=== PATIENT | male | born 1950 | race Caucasian/White ===

== ENCOUNTER → 2019-01-12 | Outpatient (CLI) | payer OTHER, MEDICARE ==
[~2019-01-12] VITALS: Ht 162.6 cm; Wt 100.7 kg
[~2019-01-12] MED LIST: ASPIR 8181 MG PO; CARDIO TABS PO; FISH OIL 1,001000 M2 PO; FLONASE 0.05%50 MCG NASAL; LOSARTAN-HCTZ1 EAC2 PO; METOPROLOL TART25 MG PO; PROTONIX40 M1 PO; VITAMINC500 PO
--- NOTE | ~2019-01-12 | P ---
[facility] [place] [address] PROCEDURE REPORT Name: JATIN SUERO Room #: [facility] [id number] Admission: 01/12/19 Attend Phys: Ryan Cabrera MD Discharge: Date of : 54 Report #: [id number] THIS REPORT FOR: //name// CC: LACY Cabrera OUTPATIENT UPPER ENDOSCOPY BRIEF HISTORY: The patient is a 68-year-old male who was recently seen with complaints of increasing epigastric pain. Pain is associated with eating. He has been on pantoprazole for reflux and developed the pain while on the pantoprazole. He does have some nausea, but no vomiting. He did recently have black stools, but also had used Pepto-Bismol. PREOPERATIVE DIAGNOSIS: Recent onset of new epigastric pain. POSTOPERATIVE DIAGNOSES: Mild diffuse gastritis. MEDICATIONS: Deep sedation with propofol per Anesthesia. SPECIMEN: None. ESTIMATED BLOOD LOSS: None. PROCEDURE: EGD. FINDINGS: Prior to propofol sedation, procedure of upper endoscopy was discussed with the patient as well potential risks and its complications. He indicates he understands and desires to proceed. DESCRIPTION OF PROCEDURE: With the patient in left lateral decubitus position, the Olympus video endoscope was inserted in the cervical esophagus under direct vision without difficulty. Examination of this organ through its entire length revealed normal esophageal mucosa down the squamocolumnar junction. The squamocolumnar junction was inspected and noted to be unremarkable. There was no endoscopic evidence of esophagitis. There was no evidence of Phillips mucosa. A hiatus hernia was not seen. Scope was advanced into the stomach, was examined on end view as well as retroflexed views. There was a pattern of diffuse erythematous gastritis, which has been previously noted. Previous biopsies were negative for H. pylori and those were not repeated today. Examination of the stomach on end view as well as retroflexed views revealed the erythema, but no ulcers, erosions or mass lesions. No lesions were identified to explain his abdominal pain. The pylorus was normal. Duodenal bulb was normal. Postbulbar duodenal sweep down to the third portion was inspected and noted to be unremarkable. At that point, the scope was slowly withdrawn and careful circumferential views confirmed the above findings. The patient [address] [address] PROCEDURE REPORT Name: JATIN SUERO Room #: [facility] Onel#: [id number] Admission: 01/12/19 Attend Phys: Ryan Cabrera MD Discharge: Date of : 54 Report #: [id number] tolerated the procedure well. CONDITION OF THE PATIENT UPON DISCHARGE: Following procedure, the patient drowsy. He will be discharged home when fully ambulatory. INSTRUCTIONS TO THE PATIENT AND FAMILY AT THE TIME OF DISCHARGE: I do not find an obvious explanation for his abdominal pain. He reports that he has had a recent ultrasound and hepatobiliary scan, which have been negative per his report. We will obtain copies for review. Since this pain is associated with eating, we will obtain a CT angiogram for further evaluation of symptoms. He may continue his pantoprazole at this point in time. He should return to the office for followup. By: [id number] Ryan Cabrera MD /nt
== END | disposition home or self-care (01) ==
LOC: GI 06:29
DX: K29.70 Gastritis, unspecified, without bleeding (principal); K21.9 Gastro-esophageal reflux disease without esophagitis; I12.9 Hypertensive chronic kidney disease with stage 1 through stage 4 chronic kidney disease, or unspecified chronic kidney disease; N18.3 Chronic kidney disease, stage 3 (moderate); G47.30 Sleep apnea, unspecified; I48.91 Unspecified atrial fibrillation; F41.9 Anxiety disorder, unspecified; Z85.828 Personal history of other malignant neoplasm of skin; Z79.01 Long term (current) use of anticoagulants; Z90.49 Acquired absence of other specified parts of digestive tract; Z98.41 Cataract extraction status, right eye; Z98.42 Cataract extraction status, left eye; Z98.890 Other specified postprocedural states; Z79.899 Other long term (current) drug therapy
CPT/HCPCS: 62110; 62900